=== PATIENT | male | born 1970 | race Caucasian/White ===

== ENCOUNTER 2017-12-06 00:43 | Outpatient (CLI) | payer BC, SELFPAY ==
--- NOTE | 2017-12-06 10:05 | DI.NM_ITS ---
SYMPTOMS/DIAGNOSIS: PAIN DUE TO INTERNAL ORTHOPEDIC DEVICE, IMPLANTS, GRAFTS, T84.84XA, PRESENCE OF ARTIFICIAL KNEE JOINT, Z96.659 ? LOOSENING OR INFECTION 3 PHASE BONE SCAN OF THE KNEES WITH SPECT IMAGES: Comparison is made with plain films from [facility] [place] [id number] [address] of the right knee dated 3A18. 24.9 millicuries of Technetium 99 M MDP were administered IV. The flow images and immediate static images are unremarkable. The delayed images and especially the SPECT images show increased activity in the patella as well as in the area of the tibial tubercle and to a lesser extent the lateral femoral tibial joint space. Whole body images show mildly increased activity in the right AC joint, likely representing degenerative changes. The remainder of the skeletal labeling is normal. IMPRESSION: Overall slightly increased activity on the whole body images in the area of the patella which is much more apparent on the SPECT images. Mildly increased activity is also seen in the tibial tubercle and lateral femoral tibial joint.
== END 2017-12-06 01:03 ==
PROVIDERS: PCP Family Medicine; Visit Provider Orthopaedic Surgery
DX: T84.84XA Pain due to internal orthopedic prosthetic devices, implants and grafts, initial encounter (principal); Z96.651 Presence of right artificial knee joint; M17.11 Unilateral primary osteoarthritis, right knee
CPT/HCPCS: 78315

== ENCOUNTER 2019-02-17 03:11 | Outpatient (CLI) | payer BC, SELFPAY ==
[2019-02-17 08:21] LABS: Calculated LDL 94 mg/dL; Cholesterol 182 mg/dL (<200); Glucose 102 mg/dL (74-106); HDL Cholesterol 81 mg/dL (40-60); Triglyceride 38 mg/dL (<150)
== END 2019-02-17 03:31 ==
PROVIDERS: PCP Family Medicine; Visit Provider Family Medicine
DX: Z13.220 Encounter for screening for lipoid disorders (principal); Z13.1 Encounter for screening for diabetes mellitus
CPT/HCPCS: 36415; 80061; 82947

== ENCOUNTER 2020-09-03 16:02 | Outpatient (REF) | payer BC, SELFPAY ==
[2020-09-03 20:22] LABS: Calculated LDL 81 mg/dL (<100); Cholesterol 166 mg/dL (<200); HDL Cholesterol 68 mg/dL (40-60); Triglyceride 87 mg/dL (<150)
[2020-09-06 10:46] LABS: Lyme Ab w Rflx to Lyme Confirm Negative (Negative)
[2020-09-07 22:28] LABS: Anaplasma phagocytophilum Negative (Negative); B. miyamotoi PCR Negative (Negative); Babesia divergens/MO-1 Negative (Negative); Babesia duncani Negative (Negative); Babesia microti Negative (Negative); Ehrlichia chaffeensis Negative (Negative); Ehrlichia ewingii/canis Negative (Negative); Ehrlichia muris eauclairensis Negative (Negative)
== END 2020-09-03 16:03 | disposition home or self-care (01) ==
LOC: LBN 16:02
PROVIDERS: PCP Family Medicine; Visit Provider Emergency Medicine
DX: Z13.220 Encounter for screening for lipoid disorders (principal); W57.XXXA Bitten or stung by nonvenomous insect and other nonvenomous arthropods, initial encounter; T14.8XXA Other injury of unspecified body region, initial encounter
CPT/HCPCS: 80061; 87798; 86618

== ENCOUNTER 2021-12-13 09:25 | Day surgery (SDC) | payer BC, SELFPAY ==
--- NOTE | 2021-12-12 10:56 | COLE_ITS ---
Colonoscopy Report Date of procedure: 12/13/21 Pre-op diagnosis general: crc screening Post-op diagnosis procedure note: same Surgeon: Saima Latham Anesthesia Type: General LMA/ETT Estimated blood loss (mL): 0 Complications: None Disposition: same day Prep: Miralax/Dulcolax Findings: 7 Procedure Description: After informed consent was obtained the patient was taken to the procedure room and placed in a left decubitous position. Monitors were applied and a time out was done. The patients name, date of , procedure, allergies to medications and metal in their body was reviewed. The patient was then sedated. Once sedated and comfortable a rectal exam was done. External exam was normal. Internal exam revealed a normal sphincter tone and no palpable masses. The prostate nl. The scope was then introduced and retrofelexed. No internal hemorrhoids were id entified. The scope was then advanced to the cecum w/out difficulty. The TI and appendiceal orifice were identified. The prep was BB PS 3 in all segments for a total of 9. The scope was then slowly retracted over 7 minutes back into the rectum. There are no polyps/AVMs/diverticula visualized today. The scope was removed and the patient was woken up and taken back to Same day surgery in stable condition. The patient tolerated the procedure well and there were no immediate complications. Follow up: The patient should follow up in 10 years unless they develop changes in bowel habits or other new gastrointestinal complaints.
--- NOTE | 2021-12-12 10:56 | PDOC.DSDIS_ITS ---
Discharge Plan Disposition Patient Disposition: HOME Condition: Good Discharge Details Reason For Visit: colon scope Attending Provider: Saima Latham Primary Care Provider: Romina Quigley Home Meds and New Rx's Prescriptions: Continued ibuprofen 200 mg tablet 200 mg PO BID Rx Instructions: 800mg BID NuGenx 1 cap PO 2XD aspirin [Adult Aspirin Regimen] 81 mg tablet,delayed release (DR/EC) 81 mg PO DAILY Qty: 1 0RF rosuvastatin 10 mg tablet 10 mg PO DAILY Qty: 1 0RF sildenafil 100 mg tablet 50 mg PO DAILY PRN (Reason: sexual activity) Qty: 10 11RF Rx Instructions: administer 30 minutes to 4 hours before activity Discontinued polyethylene glycol 3350 17 gram/dose powder 238 g PO ONCE Qty: 238 0RF Rx Instructions: take per colonoscopy instructions bisacodyl [Dulcolax (bisacodyl)] 5 mg tablet,delayed release (DR/EC) 5 mg PO ONCE Qty: 4 0RF Rx Instructions: take per colonoscopy instructions Discharge Instructions Additional Instructions: DSU Colonoscopy Post- Op Instructions Instructions for Everyone who is given Anesthesia: For your safety, please do the following for the next twenty-four (24) hours: *Do Not operate a motor vehicle (car, truck, motorcycle, etc.) *Do Not drink alcoholic beverages or use any recreational drugs for the first 24 hours or while taking pain medications. The medications in your body may have a reaction that can be dangerous. *Do Not make any important decisions or sign any important papers. Findings: Normal Follow up: Repeat in 10 yrs time Resume ASA therapy: today Celebrex- talk to your PCP about using this medication for chronic knee pain 1. No lifting over 20 pounds or strenuous activity for the first 24 hours after your procedure. After 24 hours there are no restrictions on your activity but you may feel fatigued for a few days. 2. After you arrive home you may have a light meal and return to your normal diet as you can tolerate it without feeling sick to your stomach. 3. You may have a bloated, gaseous feeling in your belly (abdomen) after a colonoscopy. Passing gas and belching will help. Walking or lying down on your left side with your knees flexed may relieve the discomfort. Call the office at [phone] (Office) or [phone] (Hospital) right away if you notice any of the following: a.Vomiting of blood or ?coffee ground stools?. b.Rectal bleeding 1Tbsp, blood clots or continuous bleeding. c.Severe belly (abdominal) pain. d.A hard distended belly (abdomen) and an inability to pass gas. 4. Please don?t expect to have a normal BM (bowel movement) for 2-3 days after your procedure. 5. If there are questions regarding the findings of your procedure, please contact your doctor 6. If you are unable to contact your doctor with a problem, contact the hospital at [phone]. 7. Continue all your regular medications unless directed otherwise. I understand the above instructions and have no questions. Signature of Patient or Adult Escort Name of Responsible Adult Escort Signature of Nurse Date/Time Activity:: see above Diet:: see above Discharge Orders Discharge Orders: Discharge Order (Routine); Ordered 12/12/21 Ordered By: Saima Latham
[2021-12-13 09:28] VITALS: BP 126/70; PULSE 81; RESP 18; TEMP 37; O2SAT 99
[2021-12-13] MEDS: Lactated Ringers 1,000 ML 80 ML IV (10:20)
--- NOTE | 2021-12-13 10:39 | W.ANESPRE ---
General Info Date of Service Date Performed: 12/13/21 Height: 6 ft 1 in Weight: 85.9 kg Body Mass Index (BMI): 25.0 Surgical Procedure: Operation Date: 12/13/21 09:50 Proposed Procedure Side Surgeon ehsan Latham, Meds Allergies and Home Medications Allergies Allergy/AdvReac Type Severity Reaction Status Date / Time oxycodone [Oxycodone] AdvReac Intermediate Severe Verified 12/13/21 09:46 mood swings Home Medication Medication Instructions Recorded NuGenx 1 cap PO 2XD 09/05/21 aspirin 81 mg tablet,delayed 81 mg PO DAILY #1 tab 09/05/21 release (Adult Aspirin Regimen) ibuprofen 200 mg tablet 200 mg PO BID 09/05/21 rosuvastatin 10 mg tablet 10 mg PO DAILY #1 tab 09/05/21 sildenafil 100 mg tablet 50 mg PO DAILY PRN sexual activity 09/07/21 #10 tabs bisacodyl 5 mg tablet,delayed 5 mg PO ONCE colonscopy bowel prep 12/05/21 release (Dulcolax (bisacodyl)) #4 tabs polyethylene glycol 3350 17 238 g PO ONCE colonoscopy prep 12/05/21 gram/dose oral powder #238 grams Current Visit Medications: Current Medications Generic Name Dose Route Start Last Admin Trade Name Freq PRN Reason Stop Dose Admin Hyoscyamine Sulfate 0.125 mg 12/12/21 10:55 Hyoscyamine 0.125 Mg Sl/Oral/Chew SL DIRECTED PRN Ringer's Solution 1,000 mls @ 80 mls/hr 12/13/21 06:00 12/13/21 10:20 IV 01/11/22 23:59 80 mls/hr INFUSION AALIYAH Administration IV Miscellaneous Supplies 1 each 12/13/21 06:00 Iv Access IV 01/11/22 23:59 DIRECTED AALIYAH Ondansetron HCl 4 mg 12/12/21 10:55 Ondansetron 4 Mg/2 Ml Vial IVP Q4H PRN PRN Nausea / Vomiting Sodium Chloride 0 ml 12/13/21 06:00 Normal Saline Flush 10 Ml Syr IV 01/11/22 23:59 PRN PRN Sodium Chloride 0 ml 12/13/21 06:00 Normal Saline 10 Ml Vial IJ 01/11/22 23:59 DIRECTED PRN Sterile Water 0 ml 12/13/21 06:00 Water,Injection,Sterile 10 Ml Vial IJ 01/11/22 23:59 DIRECTED PRN PFSH Active Problems Active Problems: Problem Status Onset Code Hyperlipidemia E78.5 Family history of cardiac disorder in father Z82.49 Erectile dysfunction N52.9 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 states I have to take quite a bit more to make a difference. Surgical History Surgical History (Updated 12/13/21 @ 09:46 by Ivelisse Mcdaniel RN) H/O hand surgery left hand History of total right knee replacement (TKR) Tobacco Smoking/Tobacco Use Status: Former Tobacco Use Passive smoking exposure: Yes Alcohol Alcohol Intake: current Alcohol intake frequency: a few times a week Alcohol type: beer and hard liquor Substance Use Substance use: Never Substance use type: does not use Vital Signs and Lab Results Vital Signs Most Recent Vital Signs in EMR: Most Recent Vital Signs Temp Pulse Resp BP Pulse Ox 37.0 C 81 18 126/70 99 12/13/21 09:28 12/13/21 09:28 12/13/21 09:28 12/13/21 09:28 12/13/21 09:28 Lab Results Blood Type / Crossmatch: No Data to Display Complete Blood Count: No Data to Display Complete Metabolic Panel: No Data to Display Liver Function Panel: No Data to Display Coagulation Panel: No Data to Display Cardiac Panel: No Data to Display Arterial Blood Gas: No Data to Display Venous Blood Gas: No Data to Display Pancreas Panel: No Data to Display Thyroid Panel: No Data to Display Infectious Disease: No Data to Display Blood Cultures: No Data to Display Toxicology Panel: No Data to Display Anesthesia Assessment and Plan Anesthesia History Personal History: Other (Wakes up during anesthesia ) Family History: No Family History of Anesthesia Complications Exercise Tolerance Exercise Tolerance: Metabolic Equivalents>4 Pertinent Negatives Pertinent Negatives: No Symptoms of GERD, No Major Cardiovascular Symptoms or Complaints, No Major Pulmonary Symptoms or Complaints and No History of CVA/TIA Cardiac & Pulmonary Exam Cardiac Exam: Normal S1/S2 Heart Sounds Pulmonary Exam: Clear Bilateral Breath Sounds Implantable Cardiac Device Does patient have a Pacemaker or an ICD?: No Airway Exam Known Difficult Airway: No Mallampati Class: 1 Mouth Opening: Normal (> 3cm) Thyromental Distance: Greater than 3 cm Neck Range of Motion: Full ROM Neck Circumference: Normal Teeth Condition: Normal Dentition ASA Classification ASA Score: ASA 2 Emergency Case?: No NPO Status NPO Status: NPO Clears >2 hours, Solids >8 hours Anesthesia Plan Resuscitation Status: Full Code Anesthesia Technique: General Anesthesia Airway Planned: Natural Airway Monitors Used: Standard Monitors
[2021-12-13 10:42] VITALS: BMI 25.0
[2021-12-13 11:26] VITALS: BP 121/70; PULSE 70; RESP 16; TEMP 36.8; O2SAT 99
--- NOTE | 2021-12-13 11:28 | W.ANESPOSTOP ---
Postoperative Evaluation Date, Time and Location Date Performed: 12/13/21 Time Performed: 11:29 Patient Location: Day Surgery Unit Vital Signs Most Recent Imported Vital Signs: Most Recent Vital Signs Temp Pulse Resp BP Pulse Ox 37.0 C 81 18 126/70 99 12/13/21 09:28 12/13/21 09:28 12/13/21 09:12/13/21 09:28 12/13/21 09:28 Most Recent Manually Entered Vital Signs: Adult Blood Pressure: 121/70 Heart Rate: 68 Respirations: 12 Oxygen Saturation (%): 99 Temperature (C): 36.3 C Pain Score (0-10 Scale): 0 Pain Score Most Recent Pain Score: Most Recent Pain Score Pain Level 0 12/13/21 09:28 Assessment Mental Status: Awake (Alert & Oriented to Patient Baseline) Airway and Respiratory Function: Patent airway with normal (patient baseline) respiratory exam Cardiovascular Function: Hemodynamically Stable Hydration Status: Adequately Hydrated Nausea & Vomiting: No Nausea or Vomiting Pain: Pt. Denies Any Pain Peripheral Nerve Block: Patient did not receive a nerve block
[2021-12-13 11:30] VITALS: BP 121/70; PULSE 68; RESP 12; TEMPC 36.3; O2SAT 99
--- NOTE | 2021-12-13 11:35 | W.ANESPOSTOP ---
Postoperative Evaluation Date, Time and Location Date Performed: 12/13/21 Time Performed: 11:35 Patient Location: Day Surgery Unit Vital Signs Most Recent Imported Vital Signs: Most Recent Vital Signs Temp Pulse Resp BP Pulse Ox 37.0 C 70 16 121/70 99 12/13/21 09:28 12/13/21 11:26 12/13/21 11:26 12/13/21 11:26 12/13/21 11:26 Most Recent Vital Signs Temp Pulse Resp BP Pulse Ox 37.0 C 81 18 126/70 99 12/13/21 09:28 12/13/21 09:28 12/13/21 09:28 12/13/21 09:28 12/13/21 09:28 Most Recent Manually Entered Vital Signs: Adult Blood Pressure: 128/71 Heart Rate: 82 Respirations: 12 Oxygen Saturation (%): 98 Temperature (C): 36.3 C Pain Score (0-10 Scale): 0 Pain Score Most Recent Pain Score: Most Recent Pain Score Pain Level 0 12/13/21 11:26 Assessment Mental Status: Awake (Alert & Oriented to Patient Baseline) Airway and Respiratory Function: Patent airway with normal (patient baseline) respiratory exam Cardiovascular Function: Hemodynamically Stable Hydration Status: Adequately Hydrated Nausea & Vomiting: No Nausea or Vomiting Pain: Pt. Denies Any Pain Peripheral Nerve Block: Patient did not receive a nerve block
[2021-12-13 11:37] VITALS: BP 128/71; PULSE 82; RESP 12; TEMPC 36.3; O2SAT 98
[2021-12-13 11:56] VITALS: BP 113/86; PULSE 60; RESP 18; TEMP 36.7; O2SAT 99
== END 2021-12-13 12:46 | disposition home or self-care (01) ==
PROVIDERS: PCP Nurse Practitioner Family; Visit Provider Surgery
PROC: 0DJD8ZZ Inspection of Lower Intestinal Tract, Via Natural or Artificial Opening Endoscopic (ICD-10-PCS; CPT 45378; principal; 2021-12-13 09:45)
DX: Z12.11 Encounter for screening for malignant neoplasm of colon (principal); E78.5 Hyperlipidemia, unspecified
CPT/HCPCS: 45378; J2250

== ENCOUNTER 2022-09-07 16:11 | Outpatient (CLI) | payer BC, SELFPAY ==
--- NOTE | 2022-09-07 16:00 | RT.EKG_ITS ---
APPROVED REPORT Exam: Resting ECG Reason for Exam: pre-op exam Patient Location: O HR:64 bpm ECG Measurements Heart Rate 64 AXIS WY 160 P 0 QRSd 101 QRS 80 QT 392 T 36 QTc 405 Conclusion Sinus rhythm...normal P axis, V-rate 50- 99 ST elev, probable normal early repol pattern...ST elevation, age<55
== END 2022-09-07 16:12 | disposition home or self-care (01) ==
PROVIDERS: PCP Nurse Practitioner Family; Visit Provider Nurse Practitioner Family
DX: Z01.818 Encounter for other preprocedural examination (principal)
CPT/HCPCS: 93010

== ENCOUNTER 2023-09-10 07:27 | Outpatient (CLI) | payer BC, SELFPAY ==
[2023-09-10 12:20] LABS: HCT 42.1 % (40.0-50.0); HGB 14.3 g/dL (13.5-17.5); MCH 31.6 pg (27.0-33.0); MCV 93 fL (80-95); MPV 10.4 fL (8.0-11.0); Platelet Count 288 10^3/uL (130-400); RBC 4.53 10^6/uL (4.36-5.78); RDW 11.5 % (11.8-14.1); RDW-SD 39.5 fL; WBC 4.51 10^3/uL (4.4-10.8)
[2023-09-10 12:49] LABS: ALT 37 U/L (16-63); AST 25 U/L (15-37); Albumin 4.1 g/dL (3.4-5.0); Alkaline Phosphatase 92 U/L (46-116); Anion Gap 4.4 mmol/L (3-11); BUN 12 mg/dL (7-18); Bilirubin, Total 0.6 mg/dL (0.2-1.0); CO2 32.6 mmol/L (21.0-32.0); CREATININE 0.9 mg/dL (0.70-1.30); Calculated LDL 54 mg/dL (<100); Chloride 103 mmol/L (98-107); Cholesterol 148 mg/dL (<200); Estimated GFR 102.76 (mL/min/1.73m2); Glucose 89 mg/dL (74-106); HDL Cholesterol 86 mg/dL (40-60); Potassium 4.2 mmol/L (3.5-5.1); Sodium 140 mmol/L (136-145); TSH (W/Ref FT4) 1.07 uIU/mL (0.36-3.74); Total Protein 7.4 g/dL (6.4-8.2); Triglyceride 44 mg/dL (<150)
[2023-09-10 13:07] LABS: Hemoglobin A1C 5.6 % (<5.7)
[2023-09-10 23:13] LABS: PSA, Screening 1.3 ng/mL (<=3.5)
[2023-09-11 09:46] LABS: HIV-1/2 Ag & Ab Screen Negative (Negative)
[2023-09-11 10:40] LABS: HBs Antibody, Quant <3.1 mIU/mL (See Note); Hep B Surface Ab Negative (See Note); Hepatitis B Core Antibody Negative (Negative); Hepatitis B Surface Antigen Negative (Negative)
[2023-09-11 10:57] LABS: Hepatitis C Ab w Rflx HCV PCR Negative (Negative)
[2023-09-12 12:33] LABS: Lipoprotein (a) 183 nmol/L (<75)
== END 2023-09-10 07:28 | disposition home or self-care (01) ==
LOC: LOS 07:27
PROVIDERS: PCP Nurse Practitioner Family; Referring Provider Nurse Practitioner Family; Visit Provider Nurse Practitioner Family
DX: Z00.00 Encounter for general adult medical examination without abnormal findings (principal); Z11.4 Encounter for screening for human immunodeficiency virus [HIV]; Z11.59 Encounter for screening for other viral diseases; Z12.5 Encounter for screening for malignant neoplasm of prostate; E78.41 Elevated Lipoprotein(a)
CPT/HCPCS: 36415; 80053; 80061; 83695; 84153; 85027; 86704; 86706; 86803; 87340; 87389; 83036; 84443

== ENCOUNTER 2024-01-11 13:25 | Outpatient (CLI) | payer BC, SELFPAY ==
[2024-01-11 13:42] LABS: HGB 13.8 g/dL (13.5-17.5); MCH 31.7 pg (27.0-33.0); MCHC 33.7 % (32.0-36.0); MCV 94 fL (80-95); MPV 9.1 fL (8.0-11.0); Platelet Count 256 10^3/uL (130-400); RBC 4.36 10^6/uL (4.36-5.78); RDW 11.7 % (11.8-14.1); RDW-SD 40.7 fL; WBC 5.39 10^3/uL (4.4-10.8)
[2024-01-11 14:21] LABS: Anion Gap 5.4 mmol/L (3-11); BUN 14 mg/dL (7-18); CO2 32.6 mmol/L (21.0-32.0); Calcium 8.9 mg/dL (8.5-10.1); Chloride 104 mmol/L (98-107); Estimated GFR 90.56 (mL/min/1.73m2); Glucose 104 mg/dL (74-106); Potassium 4.5 mmol/L (3.5-5.1); Sodium 142 mmol/L (136-145)
== END 2024-01-11 13:26 | disposition home or self-care (01) ==
LOC: LBO 13:26
PROVIDERS: PCP Nurse Practitioner Family; Visit Provider Nurse Practitioner Family
DX: R10.9 Unspecified abdominal pain (principal)
CPT/HCPCS: 36415; 80048; 85027